=== PATIENT | female | born 1950 | race Caucasian/White ===

== ENCOUNTER 2016-08-24 16:45 | Inpatient (IN) | payer BC, MEDICARE ==
[~2016-08-24] VITALS: Ht 175.3 cm; Wt 78.7 kg
[~2016-08-24 16:45] MED LIST: HYDR1TAB86 PO; LEVO500T69 PO; LISI20TA PO; METR500T PO; OMEP20CA12 PO; OMEP40CA36 PO; acid reflux; htn med
[2016-08-24] MEDS ORDERED: NS IV 1000 ML 1,000 ML IV ONE ×2 (17:06→18:05)
[2016-08-24] MEDS ORDERED: FLUO10CA19 PO (17:31)
--- NOTE | 2016-08-24 17:38 | Diagnostic Imaging Report ---
Indication: Fell, head injury, low blood pressure. Comparison studies: None Findings: Frontal view of the chest demonstrates the lungs to be clear. The heart, mediastinum and pulmonary vascularity are normal. Some degenerative changes are present in the right shoulder. Impression: Negative chest. Dictated by: Dictated on workstation # [id number]
--- NOTE | 2016-08-24 17:41 | Diagnostic Imaging Report ---
PROCEDURE: CT head and CT cervical spine without contrast. TECHNIQUE: Multiple contiguous axial images were obtained through the brain and cervical spine without the use of intravenous contrast. Sagittal and coronal reformations through the cervical spine were then performed. INDICATION: Fell, no loss of consciousness, complaining of headache and neck pain. COMPARISON STUDY: CT scan of the head from 11/11/2015. FINDINGS: There is no mass effect, midline shift, hemorrhage, or extra-axial fluid collections. Rodríguez-white matter differentiation appears normal. Ventricles, cortical sulci, and basilar cisterns are normal. Postoperative changes are again seen to the frontal bone with opacification of the frontal sinuses. Mastoid air cells are clear. IMPRESSION: There are no acute findings. Cervical spine: Noncontrast CT scan of the cervical spine with sagittal and coronal reformats demonstrates no fracture or subluxation. There is loss of the normal lordotic curvature. The craniocervical junction appears normal. Diffuse spondylosis is present with central and bilateral foraminal stenosis at C4-C5, C5-C6, and C6-C7. Small cervical lymph nodes are within normal limits of size. IMPRESSION: Spondylosis is present with no acute findings in the cervical spine. Dictated by: Dictated on workstation # [id number]
[2016-08-24 17:48] LABS: ALANINE AMINOTRANSFERASE 19 U/L (0-55); ALBUMIN 3.8 G/DL (3.2-4.5); ANION GAP 13 MMOL/L (5-14); ASPARTATE AMINO TRANSFERASE 22 U/L (5-34); BILIRUBIN,TOTAL 1.6 MG/DL (0.1-1.0); BLOOD UREA NITROGEN 24 MG/DL (7-18); BUN/CREATININE RATIO 9; CALCIUM 9.3 MG/DL (8.5-10.1); CARBON DIOXIDE 20 MMOL/L (21-32); CHLORIDE 107 MMOL/L (98-107); CREATININE SERUM 2.66 MG/DL (0.60-1.30); GFR ESTIMATED 18; GLUCOSE 118 MG/DL (70-105); SODIUM 140 MMOL/L (135-145); TOTAL PROTEIN 7.3 G/DL (6.4-8.2)
[2016-08-24 17:53] LABS: BASOPHILS % (AUTO) 0 % (0-10); EOSINOPHILS % (AUTO) 0 % (0-10); LYMPHOCYTES # (AUTO) 1.6 X 10^3 (1.0-4.0); LYMPHOCYTES % (AUTO) 13 % (12-44); MEAN CORPUSCULAR HEMOGLOBIN 30 PG (25-34); MEAN CORPUSCULAR HGB CONC 33 G/DL (32-36); MEAN CORPUSCULAR VOLUME 92 FL (80-99); MEAN PLATELET VOLUME 9.5 FL (7.4-10.4); MONOCYTES # (AUTO) 1.2 X 10^3 (0.0-1.0); MONOCYTES % (AUTO) 9 % (0-12); NEUTROPHILS # (AUTO) 9.4 X 10^3 (1.8-7.8); NEUTROPHILS % (AUTO) 77 % (42-75); PLATELET COUNT 279 10^3/uL (130-400); RED BLOOD COUNT 4.26 10^6/uL (4.35-5.85); RED CELL DISTRIBUTION WIDTH 12.2 % (10.0-14.5); WHITE BLOOD COUNT 12.2 10^3/uL (4.3-11.0)
[2016-08-24 17:55] LABS: TROPONIN I < 0.30 NG/ML (<0.30)
--- NOTE | 2016-08-24 18:00 | Diagnostic Imaging Report ---
PROCEDURE: CT pelvis without contrast. TECHNIQUE: Multiple contiguous axial images were obtained through the pelvis without the use of intravenous contrast. Sagittal and coronal reformations were performed. INDICATION: Fall. Lower pelvic pain. COMPARISON: 07/16/2012. FINDINGS: Evaluation of the bony pelvis demonstrates focal cortical disruption involving the anterior margins at the junction of S2 and S3 (image 91, series 5). Corresponding fracture is also identified posteriorly, also on the sagittal sequence (images 84 and 94, series 5). The remainder of the bony pelvis is intact. SI joints are symmetric. Pubic symphysis is intact. Included portions of the proximal femurs are intact. There is no evidence of hip fracture or dislocation on either side. 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 There is also moderate amount of air within the lumen of the urinary bladder. No free fluid is seen within the pelvis. IMPRESSION: 1. Nondisplaced sacral fracture as described above. 2. Air within the urinary bladder. Correlation with history of recent instrumentation is recommended. Alternatively, findings can be seen with gas forming cystitis. Dictated by: Dictated on workstation # [id number]
--- NOTE | 2016-08-24 18:12 | ED General ---
General Chief Complaint: Trauma-Non Activation Stated Complaint: FALL/HEAD INJ/LOW BP/DIZZINESS Nursing Triage Note: AMB TO ROOM REPORTS HAD FALL LAST NIGHT HITTING HEAD NO LOC C COLLAR PLACED ON ADMIT TO ROOM. PATIENT REPORT THAT WAS SEEN AT [facility] [address] B/P WAS IN 70/ WAS TOLD TO JUST WATCH IT. CON'T NOT FEEL WELL. Nursing Sepsis Screen: No Definite Risk Source of Information: Patient Exam Limitations: No Limitations (FREDY SALAS MD) History of Present Illness Time Seen by Provider: 16:48 Initial Comments This 65-year-old woman presents to the emergency room with complaints of feeling lightheaded and ill with symptoms starting as long as 2 weeks ago. She has had cough with URI symptoms. She presented to the [facility] clinic earlier today and was diagnosed with sinus infection. Her blood pressure was noted to be 72/52 at that time. Symptoms progressed today and she decided to present to the emergency room. She also reports slipping and falling in the bathtub last night. She had the back of her head and complains of head pain, neck pain, and tailbone pain. C-collar was placed during assessment. (FREDY SALAS MD) Allergies and Home Medications Allergies Coded Allergies: No Known Drug Allergies (Unverified , 04/20/10) Home Medications Cefaclor 500 Mg Capsule, 500 MG PO BID, #14 Prescribed by: RUT ALONSO on 08/26/16 0858 Fluoxetine HCl 10 Mg Capsule, 10 MG PO DAILY, (Reported) Lisinopril 20 Mg Tablet, 20 MG PO DAILY, (Reported) Pantoprazole Sodium 40 Mg Tablet.dr, 40 MG PO DAILY, (Reported) Constitutional: see HPI EENTM: see HPI Respiratory: see HPI Cardiovascular: see HPI Gastrointestinal: see HPI Genitourinary: no symptoms reported : No Musculoskeletal: see HPI Skin: no symptoms reported Psychiatric/Neurological: See HPI Hematologic/Lymphatic: No Symptoms Reported (FREDY SALAS MD) Past Amaxdup-Xuyrdt-Wlfbvc Hx Patient Social History Recent Foreign Travel: No Contact w/Someone Who Travel: No Recent Infectious Disease Expo: No Recent Hopitalizations: No (FREDY SALAS MD) Immunizations Up To Date Tetanus Booster (TDap): Less than 5yrs PED Vaccines UTD: No Date of Influenza Vaccine: Nov 27, 2011 (FREDY SALAS MD) Surgeries HX Surgeries: Yes (BRAIN TUMOR REMOVED-1999, FACIAL LACERATION 1968, melanoma excision from neck) (FREDY SALAS MD) Respiratory Hx Respiratory Disorders: No (FREDY SALAS MD) Cardiovascular Hx Cardiac Disorders: Yes Cardiac Disorders: Hypertension (FREDY SALAS MD) Neurological Hx Neurological Disorders: No (FREDY SALAS MD) Reproductive System : No Hx Reproductive Disorders: No (FREDY SALAS MD) Genitourinary Hx Genitourinary Disorders: Yes Genitourinary Disorders: UTI-Chronic (recurrent UTI) (FREDY SALAS MD) Gastrointestinal Hx Gastrointestinal Disorders: Yes (07/17/12) Gastrointestinal Disorders: Colitis, Gastrointestinal Bleed (FREDY SALAS MD) Musculoskeletal Hx Musculoskeletal Disorders: Yes (2008) Musculoskeletal Disorders: Fractures (FREDY SALAS MD) Endocrine Hx Endocrine Disorders: No (FREDY SALAS MD) HEENT HX ENT Disorders: Yes HEENT Disorders: Cataract (FREDY SALAS MD) Cancer Hx Cancer: Yes Cancer: Brain, Skin, Melanoma (FREDY SALAS MD) Psychosocial Hx Psychiatric Problems: No (FREDY SALAS MD) Integumentary HX Skin/Integumentary Disorder: No (FREDY SALAS MD) Blood Transfusions Hx Blood Disorders: No Adverse Reaction to a Blood Tr: No (FREDY SALAS MD) Family Medical History Significant Family History: Cancer, Hypertension (FREDY SALAS MD) Physical Exam Vital Signs Vital Sign - Last 12Hours 08/24/16 16:52 Temp 98.8 Pulse 82 Resp 18 B/P (MAP) 100/65 Pulse Ox 98 O2 Delivery Room Air (DO DEWITT APRN) Vital Signs Capillary Refill : Less Than 3 Seconds (FREDY SALAS MD) General Appearance: No Apparent Distress, WD/WN HEENT: PERRL/EOMI, Normal ENT Inspection, Other (oropharynx for a dry) Neck: Normal Inspection, Other (in c-collar) Respiratory: Lungs Clear, Normal Breath Sounds, No Accessory Muscle Use, No Respiratory Distress Cardiovascular: Regular Rate, Rhythm, No Edema, No Murmur Gastrointestinal: Non Tender, Soft Extremity: Normal Inspection Neurologic/Psychiatric: Alert, Oriented x3, No Motor/Sensory Deficits, Normal 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, 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 Skin: Normal Color, Warm/Dry (FREDY SALAS MD) Progress/Results/Core Measures Results/Orders Lab Results Laboratory Tests Test 08/24/16 17:18 08/24/16 18:25 Range/Units White Blood Count 12.2 H 4.3-11.0 10^3/uL Red Blood Count 4.26 L 4.35-5.85 10^6/uL Hemoglobin 12.9 11.5-16.0 G/DL Hematocrit 39 35-52 % Mean Corpuscular Volume 92 80-99 FL Mean Corpuscular Hemoglobin 30 25-34 PG Mean Corpuscular Hemoglobin Concent 33 32-36 G/DL Red Cell Distribution Width 12.2 10.0-14.5 % Platelet Count 279 130-400 10^3/uL Mean Platelet Volume 9.5 7.4-10.4 FL Neutrophils (%) (Auto) 77 H 42-75 % Lymphocytes (%) (Auto) 13 12-44 % Monocytes (%) (Auto) 9 0-12 % Eosinophils (%) (Auto) 0 0-10 % Basophils (%) (Auto) 0 0-10 % Neutrophils # (Auto) 9.4 H 1.8-7.8 X 10^3 Lymphocytes # (Auto) 1.6 1.0-4.0 X 10^3 Monocytes # (Auto) 1.2 H 0.0-1.0 X 10^3 Eosinophils # (Auto) 0.0 0.0-0.3 10^3/uL Basophils # (Auto) 0.0 0.0-0.1 10^3/uL Sodium Level 140 135-145 MMOL/L Potassium Level 4.0 3.6-5.0 MMOL/L Chloride Level 107 98-107 MMOL/L Carbon Dioxide Level 20 L 21-32 MMOL/L Anion Gap 13 5-14 MMOL/L Blood Urea Nitrogen 24 H 7-18 MG/DL Creatinine 2.66 H 0.60-1.30 MG/DL Estimat Glomerular Filtration Rate 18 BUN/Creatinine Ratio 9 Glucose Level 118 H 70-105 MG/DL Calcium Level 9.3 8.5-10.1 MG/DL Magnesium Level 2.0 1.8-2.4 MG/DL Total Bilirubin 1.6 H 0.1-1.0 MG/DL Aspartate Amino Transf (AST/SGOT) 22 5-34 U/L Alanine Aminotransferase (ALT/SGPT) 19 0-55 U/L Alkaline Phosphatase 68 40-136 U/L Troponin I < 0.30 <0.30 NG/ML Total Protein 7.3 6.4-8.2 G/DL Albumin 3.8 3.2-4.5 G/DL Urine Color YELLOW Urine Clarity SLIGHTLY CLOUDY Urine pH 5 5-9 Urine Specific [place] 1.020 1.016-1.022 Urine Protein 2+ H NEGATIVE Urine Glucose (UA) NEGATIVE NEGATIVE Urine Ketones NEGATIVE NEGATIVE Urine Nitrite NEGATIVE NEGATIVE Urine Bilirubin NEGATIVE NEGATIVE Urine Urobilinogen 8 H NORMAL MG/DL Urine Leukocyte Esterase 3+ H NEGATIVE Urine RBC (Auto) 2+ H NEGATIVE Urine RBC 5-10 H /HPF Urine WBC >100 H /HPF Urine Squamous Epithelial Cells 5-10 /HPF Urine Crystals NONE /LPF Urine Bacteria LARGE H /HPF Urine Casts NONE /LPF Urine Mucus NEGATIVE /LPF Urine Culture Indicated YES (DO DEWITT APRN) My Orders Orders - DO DEWITT APRN Ceftriaxone Injection (Rocephin Injectio (08/24/16 19:00) (DO DEWITT APRN) Medications Given in ED Current Medications Medications Dose Ordered Sig/Branden Route Start Time Stop Time Status Last Admin Dose Admin Sodium Chloride 1,000 ml @ 0 mls/hr Q0M ONCE IV 08/24/16 17:06 08/24/16 17:08 DC 08/24/16 18:00 1,000 MLS/HR (DO DEWITT APRN) Vital Signs/I&O Vital Sign - Last 12Hours 08/24/16 16:52 Temp 98.8 Pulse 82 Resp 18 B/P (MAP) 100/65 Pulse Ox 98 O2 Delivery Room Air (DO DEWITT APRN) Blood Pressure Mean: 77 Progress Note : Progress Note She was placed in c-collar during assessment. IV fluids were initiated. Imaging revealed a sacral fracture, nondisplaced. CT of head and cervical spine were normal. C-collar was cleared at 18:15. Chest x-ray was normal. Once renal failure was identified in labs, a second liter of IV fluids was ordered. Air was seen in the bladder on CT of the pelvis without explanation. UA was ordered. Case was reviewed with Dr. Schmidt who will be consulted for trauma. Case was reviewed with Dr. Alonso who agrees with admission for hydration overnight and repeat labs in the morning. In addition to the 2 L of fluids ordered in the emergency room, normal saline will be run at 100 mL per hour through the night. (FREDY SALAS MD) ECG Initial ECG Impression Date: August 24, 2016 Initial ECG Impression Time: 17:07 Initial ECG Rate: 68 Initial ECG Rhythm: Normal Sinus Initial ECG Intervals: Normal Initial ECG Impression: Normal Comment Normal sinus rhythm with no ST elevation or depression. No abnormal intervals. LVH with secondary repolarization. (FREDY SALAS MD) Diagnostic Imaging Diagonstic Imaging: CT Plain Films/CT/US/NM/MRI: c-spine, head Comments CT head and cervical spine viewed by me. Report reviewed. See report below: NAME: ANNABELLA TRONCOSO [facility] REC#: [id number] PT STATUS: REG ER : 1950 PHYSICIAN: FREDY SALAS MD ADMIT DATE: 08/24/16/ER Draft Date of Exam:08/24/16 CT HEAD/CERVICAL SPINE WO PROCEDURE: CT head and CT cervical spine without contrast. TECHNIQUE: Multiple contiguous axial images were obtained through the brain and cervical spine without the use of intravenous contrast. Sagittal and coronal reformations through the cervical spine were then performed. INDICATION: Fell, no loss of consciousness, complaining of headache and neck pain. COMPARISON STUDY: CT scan of the head from 11/11/2015. FINDINGS: There is no mass effect, midline shift, hemorrhage, or extra-axial fluid collections. Rodríguez-white matter differentiation appears normal. Ventricles, cortical sulci, and basilar cisterns are normal. Postoperative changes are again seen to the frontal bone with opacification of the frontal sinuses. Mastoid air cells are clear. IMPRESSION: There are no acute findings. Cervical spine: Noncontrast CT scan of the cervical spine with sagittal and coronal reformats demonstrates no fracture or subluxation. There is loss of the normal lordotic curvature. The craniocervical junction appears normal. Diffuse spondylosis is present with central and bilateral foraminal stenosis at C4-C5, C5-C6, and C6-C7. Small cervical lymph nodes are within normal limits of size. IMPRESSION: Spondylosis is present with no acute findings in the cervical spine. Dictated on workstation # [id number] Dict: 08/24/16 1734 Trans: 08/24/16 1740 [id number] Interpreted by: EDUARDO COHEN MD Diagonstic Imaging: CT Plain Films/CT/US/NM/MRI: pelvis Comments CT pelvis viewed by me and report reviewed. See report below: NAME: ANNABELLA TRONCOSO [facility] REC#: [id number] PT STATUS: REG ER : 1950 PHYSICIAN: FREDY SALAS MD ADMIT DATE: 08/24/16/ER Draft Date of Exam:08/24/16 CT PELVIS WO PROCEDURE: CT pelvis without contrast. TECHNIQUE: Multiple contiguous axial images were obtained through the pelvis without the use of intravenous contrast. Sagittal and coronal reformations were performed. INDICATION: Fall. Lower pelvic pain. COMPARISON: 07/16/2012. FINDINGS: Evaluation of the bony pelvis demonstrates focal cortical disruption involving the anterior margins at the junction of S2 and S3 (image 91, series 5). Corresponding fracture is also identified posteriorly, also on the sagittal sequence (images 84 and 94, series 5). The remainder of the bony pelvis is intact. SI joints are symmetric. Pubic symphysis is intact. Included portions of the proximal femurs are intact. There is no evidence of hip fracture or dislocation on either side. 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 There is also moderate amount of air within the lumen of the urinary bladder. No free fluid is seen within the pelvis. IMPRESSION: 1. Nondisplaced sacral fracture as described above. 2. Air within the urinary bladder. Correlation with history of recent instrumentation is recommended. Alternatively, findings can be seen with gas forming cystitis. Dictated on workstation # [id number] Dict: 08/24/16 175 Trans: 08/24/16 175 IMS [id number] Interpreted by: LEXX WALKER Imaging: Xray Plain Films/CT/US/NM/MRI: chest Comments NAME: ANNABELLA TRONCOSO [facility] REC#: [id number] PT STATUS: REG ER : 1950 PHYSICIAN: FREDY SALAS MD ADMIT DATE: 08/24/16/ER Signed Date of Exam:08/24/16 CHEST 1 VIEW, AP/PA ONLY Indication: Fell, head injury, low blood pressure. Comparison studies: None Findings: Frontal view of the chest demonstrates the lungs to be clear. The heart, mediastinum and pulmonary vascularity are normal. Some degenerative changes are present in the right shoulder. Impression: Negative chest. Dictated by: Dictated on workstation # [id number] Dict: 08/24/161732 Trans: 08/24/16 180 B [id number] Interpreted by: EDUARDO COHEN MD Electronically signed by: EDUARDO COHEN MD 08/24/161805 (FREDY SALAS MD) Departure Communication Progress Notes 1858-Urinalysis does show urinary tract infection. Rocephin 1 g IV ordered here. Patient also has bilateral conjunctival erythema/injection. She states that her grandson had pinkeye recently. I will also add gentamicin ophthalmic drops. (DO DEWITT APRN) Impression Impression: Primary Impression: Acute renal failure Qualified Codes: N17.9 - Acute kidney failure, unspecified Additional Impressions: Sacral fracture Qualified Codes: S32.10XA - Unspecified fracture of sacrum, initial encounter for closed fracture Fall in bathtub Qualified Codes: W18.2XXA - Fall in (into) shower or empty bathtub, initial encounter Conjunctivitis Qualified Codes: H10.33 - Unspecified acute conjunctivitis, bilateral Urinary tract infection Qualified Codes: N39.0 - Urinary tract infection, site not specified Disposition: ADMITTED INPATIENT Condition: Stable Decision to Admit Reason: Admit from ER (General) Decision to Admit/Date: August 24, 2016 Time/Decision to Admit Time: 18:58 (DO DEWITT APRN) Departure-Patient Inst. Referrals: RUT ALONSO DO (PCP/Family) Primary Care Physician Scripts Cefaclor (Cefaclor) 500 Mg Capsule 500 MG PO BID, #14 CAP Prov: RUT ALONSO DO 08/26/16 FREDY SALAS MD August 24, 2016 18:12 DO DEWITT APRN August 24, 2016 18:59
[2016-08-24 18:33] LABS: KETONES,URINE NEGATIVE (NEGATIVE); LEUKOCYTE ESTERASE ,URINE 3+ (NEGATIVE); NITRITE,URINE NEGATIVE (NEGATIVE); PH,URINE 5 (5-9); PROTEIN,URINE 2+ (NEGATIVE); UROBILINOGEN,URINE 8 MG/DL (NORMAL)
[2016-08-24 18:46] LABS: BILIRUBIN,URINE NEGATIVE (NEGATIVE); WBC,URINE >100 /HPF
--- NOTE | 2016-08-24 18:49 | Consultation ---
History of Present Illness History of Present Illness Patient Consulted On(wei/time) 08/24/16 18:44 Date of Admission History of Present Illness This is a 65 year old woman who came into the ER due to a fall, last night. She complained of head pain, neck pain, and tailbone pain to ED . She reports that she had just taken a bath and was stepping out. She reports slipping and falling to her bottom and fell backwards hitting her head. Patient denies any LOC. She is alert and oriented x 3. No signs of distress or discomfort noted. Allergies and Home Medications Allergies Coded Allergies: No Known Drug Allergies (Unverified , 04/20/10) Home Medications Fluoxetine HCl 10 Mg Capsule, #90 (Reported) Lisinopril 20 Mg Tablet, 20 MG PO DAILY, (Reported) Omeprazole 40 Mg Capsule.dr, 40 MG PO DAILY, (Reported) Past Imbzzvu-Rurxux-Vqvnsj Hx Patient Social History Recent Foreign Travel: No Contact w/Someone Who Travel: No Recent Infectious Disease Expo: No Recent Hopitalizations: No Immunizations Up To Date Tetanus Booster (TDap): Less than 5yrs PED Vaccines UTD: No Date of Influenza Vaccine: Nov 27, 2011 Surgeries HX Surgeries: Yes (BRAIN TUMOR REMOVED-1999, FACIAL LACERATION 1968, melanoma excision from neck) Respiratory Hx Respiratory Disorders: No Cardiovascular Hx Cardiac Disorders: Yes Cardiac Disorders: Hypertension Neurological Hx Neurological Disorders: No Reproductive System : No Hx Reproductive Disorders: No Genitourinary Hx Genitourinary Disorders: Yes Genitourinary Disorders: UTI-Chronic (recurrent UTI) Gastrointestinal Hx Gastrointestinal Disorders: Yes (07/17/12) Gastrointestinal Disorders: Colitis, Gastrointestinal Bleed Musculoskeletal Hx Musculoskeletal Disorders: Yes (WRIST 2008) Musculoskeletal Disorders: Fractures Endocrine Hx Endocrine Disorders: No HEENT HX ENT Disorders: Yes HEENT Disorders: Cataract Cancer Hx Cancer: Yes Cancer: Brain, Skin, Melanoma Psychosocial Hx Psychiatric Problems: No Integumentary HX Skin/Integumentary Disorder: No Blood Transfusions Hx Blood Disorders: No Adverse Reaction to a Blood Tr: No Family Medical History Significant Family History: Cancer, Hypertension Review of Systems-General Constitutional: see HPI EENTM: see HPI Respiratory: no symptoms reported Cardiovascular: no symptoms reported Gastrointestinal: no symptoms reported Genitourinary: no symptoms reported Musculoskeletal: back pain Skin: no symptoms reported, see HPI Psychiatric/Neurological: No Symptoms Reported Physical Exam-General Problems Physical Exam Vital Signs Vital Sign - Last 12Hours 08/24/16 16:52 Temp 98.8 Pulse 82 Resp 18 B/P (MAP) 100/65 Pulse Ox 98 O2 Delivery Room Air Capillary Refill : Less Than 3 Seconds General Appearance: no apparent distress HEENT: PERRL/EOMI Respiratory: chest non-tender, no respiratory distress, no accessory muscle use Cardiovascular: regular rate, rhythm Gastrointestinal: soft, no organomegaly, no pulsatile mass Extremities: no pedal edema, no calf tenderness Neurologic/Psychiatric: alert, normal mood/affect, oriented x 3 Data Review Labs Laboratory Tests 08/24/16 17:18: White Blood Count 12.2H, Red Blood Count 4.26L, Hemoglobin 12.9, Hematocrit 39, Mean Corpuscular Volume 92, Mean Corpuscular Hemoglobin 30, Mean Corpuscular Hemoglobin Concent 33, Red Cell Distribution Width 12.2, Platelet Count 279, Mean Platelet Volume 9.5, Neutrophils (%) (Auto) 77H, Lymphocytes (%) (Auto) 13 , Monocytes (%) (Auto) 9, Eosinophils (%) (Auto) 0, Basophils (%) (Auto) 0, Neutrophils # (Auto) 9.4H, Lymphocytes # (Auto) 1.6, Monocytes # (Auto) 1.2H, Eosinophils # (Auto) 0.0, Basophils # (Auto) 0.0, Sodium Level 140, Potassium Level 4.0, Chloride Level 107, Carbon Dioxide Level 20L, Anion Gap 13, Blood Urea Nitrogen 24H, Creatinine 2.66H, Estimat Glomerular Filtration Rate 18, BUN/ Creatinine Ratio 9, Glucose Level 118H, Calcium Level 9.3, Magnesium Level 2.0, Total Bilirubin 1.6H, Aspartate Amino Transf (AST/SGOT) 22, Alanine Aminotransferase (ALT/SGPT) 19, Alkaline Phosphatase 68, Troponin I < 0.30, Total Protein 7.3, Albumin 3.8 08/24/16 18:25: Radiology NAME: ANNABELLA TRONCOSO [facility] REC#: [id number] PT STATUS: REG ER : 1950 PHYSICIAN: FREDY SALAS MD ADMIT DATE: 08/24/16/ER Signed Date of Exam: 08/24/16 CT HEAD/CERVICAL SPINE WO PROCEDURE: CT head and CT cervical spine without contrast. TECHNIQUE: Multiple contiguous axial images were obtained through the brain and cervical spine without the use of intravenous contrast. Sagittal and coronal reformations through the cervical spine were then performed. INDICATION: Fell, no loss of consciousness, complaining of headache and neck pain. COMPARISON STUDY: CT scan of the head from 11/11/2015. FINDINGS: There is no mass effect, midline shift, hemorrhage, or extra-axial fluid collections. Rodríguez-white matter differentiation appears normal. Ventricles, cortical sulci, and basilar cisterns are normal. Postoperative changes are again seen to the frontal bone with opacification of the frontal sinuses. Mastoid air cells are clear. IMPRESSION: There are no acute findings. Cervical spine: Noncontrast CT scan of the cervical spine with sagittal and coronal reformats demonstrates no fracture or subluxation. There is loss of the normal lordotic curvature. The craniocervical junction appears normal. Diffuse spondylosis is present with central and bilateral foraminal stenosis at C4-C5, C5-C6, and C6-C7. Small cervical lymph nodes are within normal limits of size. IMPRESSION: Spondylosis is present with no acute findings in the cervical spine. BONI: ANNBAELLA TRONCOSO [facility] REC#: [id number] PT STATUS: REG ER : 1950 PHYSICIAN: FREDY SALAS MD ADMIT DATE: 08/24/16/ER Draft Date of Exam:08/24/16 CT PELVIS WO PROCEDURE: CT pelvis without contrast. TECHNIQUE: Multiple contiguous axial images were obtained through the pelvis without the use of intravenous contrast. Sagittal and coronal reformations were performed. INDICATION: Fall. Lower pelvic pain. COMPARISON: 07/16/2012. FINDINGS: Evaluation of the bony pelvis demonstrates focal cortical disruption involving the anterior margins at the junction of S2 and S3 (image 91, series 5). Corresponding fracture is also identified posteriorly, also on the sagittal sequence (images 84 and 94, series 5). The remainder of the bony pelvis is intact. SI joints are symmetric. Pubic symphysis is intact. Included portions of the proximal femurs are intact. There is no evidence of hip fracture or dislocation on either side. 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 There is also moderate amount of air within the lumen of the urinary bladder. No free fluid is seen within the pelvis. IMPRESSION: 1. Nondisplaced sacral fracture as described above. 2. Air within the urinary bladder. Correlation with history of recent instrumentation is recommended. Alternatively, findings can be seen with gas forming cystitis. Assessment/Plan Assessment/Plan Assessment/Plan Nondisplaced sacral fracture Acute kidney failure Fall We will continue to monitor patient including her labs and vital signs. Roxana- consulted for trauma fall. 65 year old female who had fall last night landing on bottom. No loss of consciousness. Has some pain in the sacral area and neck and lower back. Patient been ill about 2 weeks with upper respiratory infection she states. Has drainage from eyes and recently around grandson with pinkeye. Eyes are matted and red. Patient had no abdominal pain. She was diagnoses with sinus infection at outpatient clinic today. She had ct head and c spine that had no acute findings. Pelvis x ray demonstrating sacral nondisplaced fracture and some air in the bladder. Chest x ray no acute finding. general no acute distress laying down head ncat eyes b/l erythematous and some matting of eyelids nares patent mouth moist GCS 15 neck no tender collar removed previous to me seeing patient heart regluar lungs nonlabored abdomen soft back minimal tenderness lower sacral region no neurological deficits ext nontender normal mood affect alert and oriented Fall yesterday, sacral fracture nondisplaced, acute renal failure, UTI B/l pink eye patient being admitted to medicine for medical management. no surgical intervention DALLAS NIELSON APRN August 24, 2016 18:49 PARI WEINER DO August 24, 2016 19:27
[2016-08-24] MEDS ORDERED: cefTRIAXone INJECTION 1,000 MG in NS (IVPB) 50 ML IV ONE (19:00)
[2016-08-24 19:51] VITALS: BP 136/82
[2016-08-24] MEDS: NS IV 1000 ML 1,000 ML IV SCH (20:00)
[2016-08-24] MEDS ORDERED: ONDANSETRON 4 MG/2 ML (SDV) Z0FRAN IV PRN (20:15)
[2016-08-24] MEDS ORDERED: CATHETER FLUSH 10 ML SYR IV PRN (20:15)
[2016-08-24 20:42] VITALS: BP 133/82
[2016-08-24 21:52] VITALS: BP 111/72
[2016-08-24 22:53] VITALS: BP 111/73
[2016-08-24] MEDS ORDERED: GENTAMICIN 0.3% OPHTH SOLN 5 ML ONE (23:08)
[2016-08-25] VITALS (7 sets, daily range): BP systolic 112–157; BP diastolic 57–76
[2016-08-25] MEDS: GENTAMICIN 0.3% OPHTH SOLN 5 ML OU SCH ×6 (00:11→23:36)
[2016-08-25] MEDS: NS IV 1000 ML 1,000 ML IV SCH ×2 (04:14→16:49)
[2016-08-25 06:36] LABS: BASOPHILS % (AUTO) 0 % (0-10); EOSINOPHILS # (AUTO) 0.2 10^3/uL (0.0-0.3); EOSINOPHILS % (AUTO) 2 % (0-10); LYMPHOCYTES # (AUTO) 1.4 X 10^3 (1.0-4.0); LYMPHOCYTES % (AUTO) 17 % (12-44); MEAN CORPUSCULAR HEMOGLOBIN 30 PG (25-34); MEAN CORPUSCULAR HGB CONC 33 G/DL (32-36); MEAN CORPUSCULAR VOLUME 93 FL (80-99); MEAN PLATELET VOLUME 9.6 FL (7.4-10.4); MONOCYTES # (AUTO) 0.7 X 10^3 (0.0-1.0); MONOCYTES % (AUTO) 9 % (0-12); NEUTROPHILS # (AUTO) 5.6 X 10^3 (1.8-7.8); NEUTROPHILS % (AUTO) 71 % (42-75); PLATELET COUNT 219 10^3/uL (130-400); RED BLOOD COUNT 3.85 10^6/uL (4.35-5.85); RED CELL DISTRIBUTION WIDTH 12.2 % (10.0-14.5); WHITE BLOOD COUNT 7.9 10^3/uL (4.3-11.0)
[2016-08-25 06:59] LABS: CALCIUM 8.4 MG/DL (8.5-10.1); CREATININE SERUM 1.64 MG/DL (0.60-1.30); POTASSIUM 3.4 MMOL/L (3.6-5.0)
[2016-08-25] MEDS ORDERED: PANT40TA3 PO (08:11)
[2016-08-25] MEDS ORDERED: IBUP-30 PO (08:11)
--- NOTE | 2016-08-25 08:46 | Progress Note ---
Subjective Subjective/Events-last exam Patient resting in bed. Even respirations. No distress noted. Alert and oriented x 3. Reports she feels fine and ready to go home. Objective Exam Vital Signs Date Time Temp Pulse Resp B/P (MAP) Pulse Ox O2 Delivery O2 Flow Rate FiO2 08/25/16 03:50 98.1 69 20 115/57 97 2.00 08/25/16 00:53 64 08/25/16 00:15 98.2 76 20 112/76 96 2.00 08/24/16 23:25 2.00 08/24/16 22:53 98.0 66 18 111/73 95 2.00 08/24/16 21:52 97.0 75 18 111/72 87 08/24/16 21:13 70 08/24/16 20:42 97.3 70 18 133/82 95 08/24/16 19:51 97.8 77 18 136/82 96 08/24/16 19:34 69 20 98 08/24/16 16:52 98.8 82 18 100/65 98 Room Air I & O 08/25/16 07:00 Intake Total 2700 ml Output Total 0 ml Balance 2700 ml Capillary Refill : Less Than 3 Seconds General Appearance: No Apparent Distress, WD/WN HEENT: PERRL/EOMI, Normal ENT Inspection, Other (oropharynx for a dry) Neck: Normal Inspection, Other (in c-collar) Respiratory: Chest Non Tender, No Accessory Muscle Use, No Respiratory Distress Cardiovascular: Regular Rate, Rhythm Gastrointestinal: soft, no organomegaly, no pulsatile mass Extremity: Normal Inspection, No Calf Tenderness, No Pedal Edema Neurologic/Psychiatric: Alert, Oriented x3, No Motor/Sensory Deficits, Normal Mood/Affect Skin: Normal Color, Warm/Dry Results Lab Laboratory Tests Test 08/24/16 17:18 08/24/16 18:25 08/25/16 05:43 Range/Units White Blood Count 12.2 H 7.9 4.3-11.0 10^3/uL Red Blood Count 4.26 L 3.85 L 4.35-5.85 10^6/uL Hemoglobin 12.9 11.6 11.5-16.0 G/DL Hematocrit 39 36 35-52 % Mean Corpuscular Volume 92 93 80-99 FL Mean Corpuscular Hemoglobin 30 30 25-34 PG Mean Corpuscular Hemoglobin Concent 33 33 32-36 G/DL Red Cell Distribution Width 12.2 12.2 10.0-14.5 % Platelet Count 279 219 130-400 10^3/uL Mean Platelet Volume 9.5 9.6 7.4-10.4 FL Neutrophils (%) (Auto) 77 H 71 42-75 % Lymphocytes (%) (Auto) 13 17 12-44 % Monocytes (%) (Auto) 9 9 0-12 % Eosinophils (%) (Auto) 0 2 0-10 % Basophils (%) (Auto) 0 0 0-10 % Neutrophils # (Auto) 9.4 H 5.6 1.8-7.8 X 10^3 Lymphocytes # (Auto) 1.6 1.4 1.0-4.0 X 10^3 Monocytes # (Auto) 1.2 H 0.7 0.0-1.0 X 10^3 Eosinophils # (Auto) 0.0 0.2 0.0-0.3 10^3/uL Basophils # (Auto) 0.0 0.0 0.0-0.1 10^3/uL Sodium Level 140 142 135-145 MMOL/L Potassium Level 4.0 3.4 L 3.6-5.0 MMOL/L Chloride Level 107 111 H 98-107 MMOL/L Carbon Dioxide Level 20 L 19 L 21-32 MMOL/L Anion Gap 13 12 5-14 MMOL/L Blood Urea Nitrogen 24 H 23 H 7-18 MG/DL Creatinine 2.66 H 1.64 H 0.60-1.30 MG/DL Estimat Glomerular Filtration Rate 18 31 BUN/Creatinine Ratio 9 14 Glucose Level 118 H 90 70-105 MG/DL Calcium Level 9.3 8.4 L 8.5-10.1 MG/DL Magnesium Level 2.0 1.8-2.4 MG/DL Total Bilirubin 1.6 H 0.1-1.0 MG/DL Aspartate Amino Transf (AST/SGOT) 22 5-34 U/L Alanine Aminotransferase (ALT/SGPT) 19 0-55 U/L Alkaline Phosphatase 68 40-136 U/L Troponin I < 0.30 <0.30 NG/ML Total Protein 7.3 6.4-8.2 G/DL Albumin 3.8 3.2-4.5 G/DL Urine Color YELLOW Urine Clarity SLIGHTLY CLOUDY Urine pH 5 5-9 Urine Specific Mentcle 1.020 1.016-1.022 Urine Protein 2+ H NEGATIVE Urine Glucose (UA) NEGATIVE NEGATIVE Urine Ketones NEGATIVE NEGATIVE Urine Nitrite NEGATIVE NEGATIVE Urine Bilirubin NEGATIVE NEGATIVE Urine Urobilinogen 8 H NORMAL MG/DL Urine Leukocyte Esterase 3+ H NEGATIVE Urine RBC (Auto) 2+ H NEGATIVE Urine RBC 5-10 H /HPF Urine WBC >100 H /HPF Urine Squamous Epithelial Cells 5-10 /HPF Urine Crystals NONE /LPF Urine Bacteria LARGE H /HPF Urine Casts NONE /LPF Urine Mucus NEGATIVE /LPF Urine Culture Indicated YES Laboratory Tests 08/24/16 17:18: White Blood Count 12.2H, Red Blood Count 4.26L, Hemoglobin 12.9, Hematocrit 39, Mean Corpuscular Volume 92, Mean Corpuscular Hemoglobin 30, Mean Corpuscular Hemoglobin Concent 33, Red Cell Distribution Width 12.2, Platelet Count 279, Mean Platelet Volume 9.5, Neutrophils (%) (Auto) 77H, Lymphocytes (%) (Auto) 13 , Monocytes (%) (Auto) 9, Eosinophils (%) (Auto) 0, Basophils (%) (Auto) 0, Neutrophils # (Auto) 9.4H, Lymphocytes # (Auto) 1.6, Monocytes # (Auto) 1.2H, Eosinophils # (Auto) 0.0, Basophils # (Auto) 0.0, Sodium Level 140, Potassium Level 4.0, Chloride Level 107, Carbon Dioxide Level 20L, Anion Gap 13, Blood Urea Nitrogen 24H, Creatinine 2.66H, Estimat Glomerular Filtration Rate 18, BUN/ Creatinine Ratio 9, Glucose Level 118H, Calcium Level 9.3, Magnesium Level 2.0, Total Bilirubin 1.6H, Aspartate Amino Transf (AST/SGOT) 22, Alanine Aminotransferase (ALT/SGPT) 19, Alkaline Phosphatase 68, Troponin I < 0.30, Total Protein 7.3, Albumin 3.8 08/24/16 18:25: Urine Color YELLOW, Urine Clarity SLIGHTLY CLOUDY, Urine pH 5, Urine Specific Mentcle 1.020, Urine Protein 2+H, Urine Glucose (UA) NEGATIVE, Urine Ketones NEGATIVE, Urine Nitrite NEGATIVE, Urine Bilirubin NEGATIVE, Urine Urobilinogen 8H, Urine Leukocyte Esterase 3+H, Urine RBC (Auto) 2+H, Urine RBC 5-10H, Urine WBC >100H, Urine Squamous Epithelial Cells 5-10, Urine Crystals NONE, Urine Bacteria LARGEH, Urine Casts NONE, Urine Mucus NEGATIVE, Urine Culture Indicated YES 08/25/16 05:43: White Blood Count 7.9, Red Blood Count 3.85L, Hemoglobin 11.6, Hematocrit 36, Mean Corpuscular Volume 93, Mean Corpuscular Hemoglobin 30, Mean Corpuscular Hemoglobin Concent 33, Red Cell Distribution Width 12.2, Platelet Count 219, Mean Platelet Volume 9.6, Neutrophils (%) (Auto) 71, Lymphocytes (%) (Auto) 17, Monocytes (%) (Auto) 9, Eosinophils (%) (Auto) 2, Basophils (%) (Auto) 0, Neutrophils # (Auto) 5.6, Lymphocytes # (Auto) 1.4, Monocytes # (Auto) 0.7, Eosinophils # (Auto) 0.2, Basophils # (Auto) 0.0, Sodium Level 142, Potassium Level 3.4L, Chloride Level 111H, Carbon Dioxide Level 19L, Anion Gap 12, Blood Urea Nitrogen 23H, Creatinine 1.64H, Estimat Glomerular Filtration Rate 31, BUN/ Creatinine Ratio 14, Glucose Level 90, Calcium Level 8.4L Microbiology 08/24/16 Urine Culture - Preliminary, Resulted Gram Negative Gurjit Strep, Beta Hemolytic Group B Assessment/Plan Assessment/Plan Assessment/Plan Nondisplaced sacral fracture UTI Acute kidney failure Fall We will continue to monitor patient including her labs and vital signs. no surgical intervention at this time. Roxana- Patient feeling better today. Having some pain but improving overall. Patient with no new complaints. Less drainage from eyes. Denies n/v fever sweats chills shortness of breath or chest pain. general no acute distress heart reg eyes less erythematous lungs nonlabored abdomen soft nontender ext nontender fall, UTI, sacral fx b/l pink eye acute kidney failure patient with no surgical issues. medical management. will sign off call if needed. Clinical Quality Measures DVT/VTE Risk/Contraindication: Risk Factor Score Per Nursin RFS Level Per Nursing on Admit: 3=High DALLAS NIELSON APRN August 25, 2016 08:46 PARI WEINER DO August 25, 2016 17:24
[2016-08-25] MEDS: cefTRIAXone INJECTION 1,000 MG in NS (IVPB) 50 ML IV SCH (09:20)
--- NOTE | 2016-08-25 18:26 | History & Physicial ---
History of Present Illness History of Present Illness Reason for visit/HPI This is a 65 year old female who presented to the emergency room with a 2 week history of not feeling well. She reported cough and congestion as well as dizziness and weakness. She had been seen earlier in the day at the [facility] and diagnosed with a sinus infection and was also found to be hypotensive. However, she was feeling worse so she presented to the emergency room. She also reported a fall in the bathtub the night before during which she struck her head, neck and tailbone. She was found to be in acute renal failure with a creatinine of 2.66. She was also hypotensive with a blood pressure of 100/65, found to have a UTI, and a nondisplaced sacral fracture at the S2/S3 level. It was decided to admit her for further evaluation and treatment. Date of Admission August 24, 2016 at 6:26 pm I consulted on this patient on 08/25/16 18:20 Attending Physician Claudia Alonso DO Admitting Physician Claudia Alonso DO Consult Allergies and Home Medications Allergies Coded Allergies: No Known Drug Allergies (Unverified , 04/20/10) Home Medications Fluoxetine HCl 10 Mg Capsule, 10 MG PO DAILY, (Reported) Ibuprofen 200 Mg Tablet, 200 MG PO DAILY PRN for PAIN-MILD, (Reported) Lisinopril 20 Mg Tablet, 20 MG PO DAILY, (Reported) Pantoprazole Sodium 40 Mg Tablet.dr, 40 MG PO DAILY, (Reported) Past Oklwrsz-Qbvkiy-Cdfupd Hx Patient Social History Alcohol Use: Occasionally Uses Recreational Drug Use: No Smoking Status: Never a Smoker Physical Abuse Screen: No Sexual Abuse: No Recent Foreign Travel: No Contact w/other who traveled: No Recent Hopitalizations: No Recent Infectious Disease Expo: No Immunizations Up To Date Tetanus Booster (TDap): Less than 5yrs Date of Pneumonia Vaccine: Dec 26, 2014 Date of Influenza Vaccine: Nov 27, 2011 Seasonal Allergies Seasonal Allergies: No Surgeries HX Surgeries: Yes (BRAIN TUMOR REMOVED-1999, FACIAL LACERATION 1968, melanoma excision from neck) Respiratory Hx Respiratory Disorders: No Cardiovascular Hx Cardiovascular Disorders: Yes Cardiac Disorders: Hypertension Neurological Hx Neurological Disorders: No Reproductive System : No Hx Reproductive Disorders: No Genitourinary Hx Genitourinary Disorders: Yes Genitourinary Disorders: UTI-Chronic Gastrointestinal Hx Gastrointestinal Disorders: Yes (4/22/13) Gastrointestinal Disorders: Colitis, Gastrointestinal Bleed Musculoskeletal Hx Musculoskeletal Disorders: Yes (2008) Musculoskeletal Disorders: Fractures Endocrine Hx Endocrine Disorders: No HEENT HX ENT Disorders: Yes HEENT Disorders: Cataract Cancer Hx Cancer: Yes Cancer: Brain, Skin, Melanoma Psychosocial Hx Psychiatric Problems: No Integumentary HX Skin/Integumentary Disorder: No Blood Transfusions Hx Blood Disorders: No Adverse Reaction to a Blood Tr: No Family Medical History Significant Family History: Cancer, Hypertension Constitutional: weakness EENTM: No blurred vision, No dental problems, No double vision, No ear discharge, No ear pain, No epistaxis, No eye pain, No hearing loss, No hoarseness, No mouth pain, No mouth swelling, No no symptoms reported, No nose congestion, No nose pain, No other, No see HPI, No tearing, No throat pain, No throat swelling, No vision loss Respiratory: cough Cardiovascular: No no symptoms reported, No see HPI, No chest pain, No edema, No Hx of Intervention, No palpitations, No syncope, No vascular heart diseas, No other Gastrointestinal: No RUQ, No LUQ, No RLQ, No LLQ, No no symptoms reported, No see HPI, No abdominal pain, No constipation, No diarrhea, No dysphagia, No hematemesis, No heartburn, No jaundice, No loss of appetite, No melena, No nausea, No vomiting, No other Genitourinary: No no symptoms reported, No see HPI, No decreased output, No discharge, No dysuria, No frequency, No hematuria, No hesitancy, No incontinence , No nocturia, No pain, No other Musculoskeletal: back pain, neck pain Skin: No no symptoms reported, No see HPI, No change in color, No change in hair/nails, No dryness, No hx of skin cancer, No lesions, No lumps, No pruritus , No rash, No other Psychiatric/Neurological: Weakness, Other Physical Exam Vital Signs Vital Sign - Last 12Hours 08/24/16 08/24/16 16:52 22:53 Temp 98.8 Pulse 82 Resp 18 B/P (MAP) 100/65 Pulse Ox 98 O2 Delivery Room Air O2 Flow Rate 2.00 Capillary Refill : Less Than 3 SecondsLess Than 3 Seconds General Appearance: No Apparent Distress HEENT: Normal ENT Inspection Neck: Supple Respiratory: Lungs Clear Cardiovascular: Regular Rate, Rhythm, Systolic Murmur Gastrointestinal: Normal Bowel Sounds, Non Tender, Soft Rectal: Deferred Back: No CVA Tenderness Extremity: Non Tender, No Calf Tenderness, No Pedal Edema Neurologic/Psychiatric: Alert, Oriented x3 Skin: Normal Color, Warm/Dry Comments Laboratory Tests 08/25/16 05:43: White Blood Count 7.9, Red Blood Count 3.85L, Hemoglobin 11.6, Hematocrit 36, Mean Corpuscular Volume 93, Mean Corpuscular Hemoglobin 30, Mean Corpuscular Hemoglobin Concent 33, Red Cell Distribution Width 12.2, Platelet Count 219, Mean Platelet Volume 9.6, Neutrophils (%) (Auto) 71, Lymphocytes (%) (Auto) 17, Monocytes (%) (Auto) 9, Eosinophils (%) (Auto) 2, Basophils (%) (Auto) 0, Neutrophils # (Auto) 5.6, Lymphocytes # (Auto) 1.4, Monocytes # (Auto) 0.7, Eosinophils # (Auto) 0.2, Basophils # (Auto) 0.0, Sodium Level 142, Potassium Level 3.4L, Chloride Level 111H, Carbon Dioxide Level 19L, Anion Gap 12, Blood Urea Nitrogen 23H, Creatinine 1.64H, Estimat Glomerular Filtration Rate 31, BUN/ Creatinine Ratio 14, Glucose Level 90, Calcium Level 8.4L Microbiology 08/24/16 Urine Culture - Preliminary, Resulted Escherichia Coli Strep, Beta Hemolytic Group B Assessment/Plan Assessment and Plan 1. Acute Renal Failure--admit and hydrate and monitor Cr 2. Acute UTI--rocephin and culture urine 3. Fall with Head Trauma and Sacral Fracture--trauma surgeon consulted 4. URI--supportive care Problems: Clinical Quality Measures DVT/VTE Risk/Contraindication: Risk Factor Score Per Nursin RFS Level Per Nursing on Admit: 3=High CLAUDIA ALONSO DO August 25, 2016 6:26 pm
[2016-08-25] MEDS ORDERED: ACETAMINOPHEN 325 MG TABLET/CAPLET (TYLENOL) PO PRN (18:45)
[2016-08-26] MEDS: NS IV 1000 ML 1,000 ML IV SCH ×2 (02:20→02:54)
[2016-08-26 03:20] VITALS: BP 132/67
[2016-08-26] MEDS: GENTAMICIN 0.3% OPHTH SOLN 5 ML OU SCH ×3 (04:12→12:09)
[2016-08-26 06:10] LABS: BASOPHILS % (AUTO) 0 % (0-10); EOSINOPHILS # (AUTO) 0.2 10^3/uL (0.0-0.3); EOSINOPHILS % (AUTO) 3 % (0-10); LYMPHOCYTES # (AUTO) 1.4 X 10^3 (1.0-4.0); LYMPHOCYTES % (AUTO) 23 % (12-44); MEAN CORPUSCULAR HEMOGLOBIN 30 PG (25-34); MEAN CORPUSCULAR HGB CONC 33 G/DL (32-36); MEAN CORPUSCULAR VOLUME 92 FL (80-99); MEAN PLATELET VOLUME 9.5 FL (7.4-10.4); MONOCYTES # (AUTO) 0.7 X 10^3 (0.0-1.0); MONOCYTES % (AUTO) 12 % (0-12); NEUTROPHILS # (AUTO) 3.8 X 10^3 (1.8-7.8); NEUTROPHILS % (AUTO) 62 % (42-75); PLATELET COUNT 236 10^3/uL (130-400); RED BLOOD COUNT 3.63 10^6/uL (4.35-5.85); RED CELL DISTRIBUTION WIDTH 12.2 % (10.0-14.5); WHITE BLOOD COUNT 6.2 10^3/uL (4.3-11.0)
[2016-08-26 06:22] LABS: ALANINE AMINOTRANSFERASE 16 U/L (0-55); ANION GAP 8 MMOL/L (5-14); ASPARTATE AMINO TRANSFERASE 21 U/L (5-34); BILIRUBIN,TOTAL 0.6 MG/DL (0.1-1.0); BLOOD UREA NITROGEN 12 MG/DL (7-18); BUN/CREATININE RATIO 14; CALCIUM 8.7 MG/DL (8.5-10.1); CARBON DIOXIDE 22 MMOL/L (21-32); CHLORIDE 111 MMOL/L (98-107); CREATININE SERUM 0.84 MG/DL (0.60-1.30); GFR ESTIMATED > 60; GLUCOSE 92 MG/DL (70-105); POTASSIUM 4.1 MMOL/L (3.6-5.0); SODIUM 141 MMOL/L (135-145); TOTAL PROTEIN 5.8 G/DL (6.4-8.2)
[2016-08-26] MEDS ORDERED: PANTOPRAZOLE 40 MG (PROTONIX) TAB PO SCH (07:00)
[2016-08-26 08:00] VITALS: BP 127/71
[2016-08-26] MEDS: cefTRIAXone INJECTION 1,000 MG in NS (IVPB) 50 ML IV SCH (08:29)
[2016-08-26] MEDS ORDERED: CEFA500C8 PO (08:58)
--- NOTE | 2016-08-26 08:59 | Discharge Inst-Simple/Standard ---
Discharge Inst-Standard Discharge Medications New, Converted or Re-Newed RX: Transmitted to Pharmacy Patient Instructions/Follow Up Plan of Care/Instructions/FU: Fwup in 2 weeks Activity as Tolerated: Yes Discharge Diet: Cardiac Diet RUT HOLLAND DO Aug 26, 2016 8:58 am
[2016-08-26] MEDS ORDERED: FLUoxetine HCL 10 MG (PROzac) CAPSULE/TABLET PO SCH (09:00)
[2016-08-26 11:53] VITALS: BP 126/77
[2016-08-26 12:40] VITALS: BP 126/77
== END 2016-08-26 12:40 | disposition home or self-care (01) | DRG 683 ==
LOC: EDUNIT# 16:45 → ER 16:47 → 4TH 18:26
PROVIDERS: ADMIT Family Medicine; ATTEND Family Medicine
DX: N17.9 Acute kidney failure, unspecified (principal); N39.0 Urinary tract infection, site not specified; S32.10XA Unspecified fracture of sacrum, initial encounter for closed fracture; J06.9 Acute upper respiratory infection, unspecified; H10.023 Other mucopurulent conjunctivitis, bilateral; I10 Essential (primary) hypertension; W01.0XXA Fall on same level from slipping, tripping and stumbling without subsequent striking against object, initial encounter
CPT/HCPCS: 36415; 70450; 71010; 72125; 72192; 80048; 80053; 81000; 83735; 84484; 85025; 87077; 87088; 87186; 93005; 93041; 94664; 94760

== ENCOUNTER → 2016-11-18 | Outpatient (CLI) | payer BC, MEDICARE ==
[~2016-11-18] MED LIST changes: +CEFA500C8 PO; +FLUO10CA19 PO; +IBUP-30 PO; +PANT40TA3 PO
--- NOTE | 2016-11-18 19:25 | Diagnostic Imaging Report ---
INDICATION: Bladder infection, renal failure. Bilateral renal sonography is performed in the routine fashion. The right kidney measures 7.9 x 4.6 x 4.9 cm. The left kidney measures 9.7 x 5.4 x 5.3 cm. Both kidneys show no hydronephrosis or mass. There is a small cyst in the left kidney inferiorly measuring 1.5 x 1.3 cm. There are bilateral ureteral jets. There is an incidental bladder diverticulum noted measuring about 2.5 cm. IMPRESSION: Relatively small right kidney with normal-size left kidney. There is no hydronephrosis. There is a small cyst in the left kidney. A bladder diverticulum is noted. Dictated by: Dictated on workstation # [id number]
== END ==
LOC: RAD 15:54
PROVIDERS: ATTEND Family Medicine
DX: N28.1 Cyst of kidney, acquired (principal); N32.3 Diverticulum of bladder
CPT/HCPCS: 76770

== ENCOUNTER → 2016-12-16 | Outpatient (CLI) | payer BC ==
--- NOTE | 2016-12-16 17:17 | Diagnostic Imaging Report ---
PROCEDURE: CT abdomen and pelvis without contrast. TECHNIQUE: Multiple contiguous axial images were obtained through the abdomen and pelvis without the use of intravenous contrast. INDICATION: Recurrent UTI. FINDINGS: The lung bases demonstrate no significant abnormality. The liver, the gallbladder, the spleen, the pancreas, and the adrenal glands appear unremarkable. The abdominal aorta is normal in caliber. No para-aortic significantly enlarged lymph nodes seen. There is a 1.2 cm low-attenuation exophytic lesion from the upper pole of the left kidney and another lesion measuring 1.4 cm from the lower pole of the left kidney, probably related to cysts. There is no hydronephrosis. There is a 2.5 x 2.6 cm lesion seen with fluid density abutting the right lateral aspect of the urinary bladder suggestive of a bladder diverticulum. A small similar lesion in the left lateral aspect measuring 1.1 cm is seen. This appears to be separate from the distal ureter on both sides. There are no urinary tract stones seen. No hydronephrosis. No significant free fluid or fluid collection in the abdomen or pelvis is seen. There is suggestion of prior hysterectomy. There is also suggestion of pelvic floor weakness with pelvic structures projecting inferior to the expected pelvic floor levels. No bowel obstruction. The osseous structures demonstrate mild right scoliotic curvature. There is a 1 cm sclerotic focus seen in the right ischium, could relate to a bony island and is stable from 2012. IMPRESSION: 1. Evidence of urinary bladder diverticula, larger on the right side arising from the lateral wall, separate from the distal ureter. 2. Evidence of pelvic floor weakness with descended appearance of the pelvic soft tissue structures into the perineum. Dictated by: Dictated on workstation # [id number]
== END ==
LOC: RAD 13:55
PROVIDERS: ATTEND Urology
DX: Z87.440 Personal history of urinary (tract) infections (principal)
CPT/HCPCS: 74176

== ENCOUNTER 2020-02-15 02:17 | Emergency (ER) | payer BC ==
[~2020-02-15] VITALS: Ht 172.7 cm; Wt 79.0 kg
[~2020-02-15 02:17] MED LIST changes: -FLUO10CA19 PO; +FLUO10CA31 PO; -PANT40TA3 PO; +PANT40TA52 PO
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
[2020-02-15] MEDS ORDERED: hydrALAZINE (APESOLINE) 20 MG/ML VIAL IV ONE (03:00)
[2020-02-15 03:28] LABS: INR 1.1 (0.8-1.4); PROTHROMBIN TIME PATIENT 14.3 SEC (12.2-14.7)
[2020-02-15 03:32] LABS: ALBUMIN 3.9 GM/DL (3.2-4.5); CHLORIDE 107 MMOL/L (98-107); POTASSIUM 4.5 MMOL/L (3.6-5.0); SODIUM 142 MMOL/L (135-145)
[2020-02-15 03:33] LABS: CALCIUM 8.7 MG/DL (8.5-10.1)
[2020-02-15 03:34] LABS: GLUCOSE 115 MG/DL (70-105)
[2020-02-15 03:35] LABS: CARBON DIOXIDE 23 MMOL/L (21-32)
[2020-02-15 03:36] LABS: BILIRUBIN,TOTAL 0.9 MG/DL (0.1-1.0)
[2020-02-15 03:38] LABS: ALKALINE PHOSPHATASE 54 U/L (40-136); GFR ESTIMATED > 60
[2020-02-15 03:39] LABS: BUN/CREATININE RATIO 15
[2020-02-15 03:41] LABS: ALANINE AMINOTRANSFERASE 23 U/L (0-55); CREATINE KINASE 34 U/L (29-168)
[2020-02-15 03:49] LABS: CREATINE KINASE MB 1.4 NG/ML (<6.6)
[2020-02-15 03:56] LABS: BASOPHILS % (AUTO) 0 % (0-10); EOSINOPHILS # (AUTO) 0.2 10^3/uL (0.0-0.3); EOSINOPHILS % (AUTO) 4 % (0-10); HEMATOCRIT 42 % (35-52); LYMPHOCYTES # (AUTO) 1.5 10^3/uL (1.0-4.0); LYMPHOCYTES % (AUTO) 31 % (12-44); MEAN CORPUSCULAR HEMOGLOBIN 30 pg (25-34); MEAN CORPUSCULAR HGB CONC 33 g/dL (32-36); MEAN CORPUSCULAR VOLUME 91 fL (80-99); MEAN PLATELET VOLUME 9.5 fL (9.0-12.2); MONOCYTES # (AUTO) 0.5 10^3/uL (0.0-1.0); MONOCYTES % (AUTO) 10 % (0-12); NEUTROPHILS # (AUTO) 2.7 10^3/uL (1.8-7.8); NEUTROPHILS % (AUTO) 55 % (42-75); PLATELET COUNT 171 10^3/uL (130-400); WHITE BLOOD COUNT 4.9 10^3/uL (4.3-11.0)
[2020-02-15 04:01] LABS: TSH (THYROID ANALYZER) 1.67 UIU/ML (0.35-4.94)
[2020-02-15] MEDS ORDERED: HYDR-3923 PO (04:02)
[2020-02-15 04:14] VITALS: BP 134/72
--- NOTE | 2020-02-15 05:26 | Diagnostic Imaging Report ---
Indication: Cough and fever Portable chest 3:01 AM Heart size and pulmonary vascularity are normal. Lungs are clear. There are no effusions or pneumothoraces. IMPRESSION: Negative chest Dictated by: Dictated on workstation # [id number]
== END 2020-02-15 04:16 | disposition home or self-care (01) ==
LOC: EDUNIT# 02:17 → ER 02:20
DX: I10 Essential (primary) hypertension (principal); F41.9 Anxiety disorder, unspecified; Z82.49 Family history of ischemic heart disease and other diseases of the circulatory system; Z80.9 Family history of malignant neoplasm, unspecified; Z85.828 Personal history of other malignant neoplasm of skin; Z85.820 Personal history of malignant melanoma of skin; Z87.891 Personal history of nicotine dependence
CPT/HCPCS: 36415; 71045; 80053; 82550; 82553; 83735; 83880; 84443; 84484; 85025; 85610; 85730; 93005; 93041; 96374

== ENCOUNTER 2021-04-24 06:04 | Outpatient (CLI) | payer BC ==
[~2021-04-24] VITALS: Ht 172 cm; Wt 78.4 kg
[~2021-04-24 06:04] MED LIST changes: +CEFA-28 PO; -CEFA500C8 PO; -FLUO10CA31 PO; +FLUO10CA33 PO; +HYDR-3923 PO
[2021-04-28] MEDS ORDERED: AMLO-251 PO (16:26)
[2021-04-28] MEDS ORDERED: METO50TA7 PO (16:26)
[2021-04-28] MEDS ORDERED: HYDR25TA4 PO (16:26)
[2021-04-28] MEDS ORDERED: PRAV10TA PO (16:26)
== END 2021-04-28 16:27 | disposition home or self-care (01) ==
LOC: PREOP 06:04
PROVIDERS: ATTEND Specialist
DX: Z01.818 Encounter for other preprocedural examination (principal)

== ENCOUNTER 2021-05-01 06:50 | Day surgery (SDC) | payer BC ==
[~2021-05-01] VITALS: Ht 172 cm; Wt 78.4 kg
[~2021-05-01 06:50] MED LIST changes: +AMLO-251 PO; +HYDR25TA4 PO; +METO50TA7 PO; +PRAV10TA PO
[2021-05-01] MEDS ORDERED: LIDOCAINE PF 1% 2 ML VIAL IR PRN (07:15)
[2021-05-01] MEDS ORDERED: TIMOLOL MALEATE 0.5% 5 ML (TIMOPTIC) BTL OU PRN (07:15)
[2021-05-01] MEDS ORDERED: POVIDONE (BETADINE) OPHTH SOLN 5% 30 ML OP ONE (07:15)
[2021-05-01] MEDS ORDERED: MOXIFLOXACIN OPHTH SOLN 5 MG/ML 0.3 ML SYRINGE OP ONE (07:15)
[2021-05-01] MEDS: TETRACAINE 0.5% OPHTH SOLN 4 ML BTL (SINGLE DOSE ONLY) OU PRN ×4 (07:16→07:37)
[2021-05-01 07:18] VITALS: BP 135/68
[2021-05-01] MEDS: PHENYLEPHRINE 10% OPHTH (NEO-SYN) 5 ML BTL OU SCH ×3 (07:25→07:38)
[2021-05-01] MEDS: TROPICAMIDE 1% OPH SOLN (MYDRIACYL) 15 ML BTL OP SCH ×3 (07:25→07:37)
[2021-05-01] MEDS ORDERED: MIDAZOLAM 2 MG/2 ML (VERSED) VIAL ONE (07:35)
--- NOTE | 2021-05-01 07:50 | Ophthalmologist Pre-Op Note ---
Pre-Operative Progress Note H&P Reviewed The H&P was reviewed, patient examined and no changes noted. Date H&P Reviewed: May 01, 2021 Time H&P Reviewed: 07:49 Pre-Op Dx Cataract, Left Eye RODRIGO CAMPOS MD May 01, 2021 07:50
--- NOTE | 2021-05-01 08:13 | Ophthalmology Operative Report ---
Cataract removal/placement IOL PREOPERATIVE DIAGNOSIS: Cataract Left Eye POSTOPERATIVE DIAGNOSIS: Cataract Left Eye PROCEDURE: Cataract removal and placement of posterior chamber implant, left eye SURGEON: Estrada Campos ANESTHESIA: Topical with sedation COMPLICATIONS: None ESTIMATED BLOOD LOSS: Minimal DESCRIPTION OF PROCEDURE: After proper informed consent was obtained, the patient, a 70 female, was taken to the Operating Room and the left eye was anesthetized with tetracaine. The left eye was then prepped and draped in the usual manner. A wire lid speculum was placed. A paracentesis was made at the left hand position. Preservative free lidocaine was injected into the anterior chamber followed by viscoelastic. A clear corneal incision was made in the temporal position. A capsulorrhexis was preformed and the central nuclear and cortical material were removed. The posterior capsule was polished and an Zane 20.5 AU00T0 was placed into the capsular bag. The residual viscoelastic was aspirated and balanced saline solution was injected into the anterior chamber. Moxifloxacin was injected into the anterior chamber. The wound was checked and found to be water tight. The patient tolerated the procedure well without complications. ESTRADA CAMPOS MD May 01, 2021 08:13
[2021-05-01 08:24] VITALS: BP 140/89
[2021-05-01] MEDS ORDERED: acetaZOLAMIDE ER 500 MG CAP (DIAMOX SEQUELS) PO ONE (09:30)
--- NOTE | 2021-05-01 12:22 | Anesthesia-General Post-Op ---
MAC Patient Condition Mental Status/LOC: Same as Preop Cardiovascular: Satisfactory Nausea/Vomiting: Absent Respiratory: Satisfactory Pain: Controlled Complications: Absent Post Op Complications Complications None Follow Up Care/Instructions Patient Instructions None needed. Anesthesiology Discharge Order Discharge Order Patient is doing well, no complaints, stable vital signs, no apparent adverse anesthesia problems. No complications reported per nursing. RAIZA LUNA CRNA May 01, 2021 12:22
== END 2021-05-01 08:25 ==
LOC: SDC 06:50
PROVIDERS: ATTEND Specialist
DX: H25.12 Age-related nuclear cataract, left eye (principal); I10 Essential (primary) hypertension; E78.5 Hyperlipidemia, unspecified; M19.90 Unspecified osteoarthritis, unspecified site; K59.00 Constipation, unspecified; E78.00 Pure hypercholesterolemia, unspecified; F32.A Depression, unspecified; Z79.899 Other long term (current) drug therapy; Z80.3 Family history of malignant neoplasm of breast; Z80.1 Family history of malignant neoplasm of trachea, bronchus and lung
CPT/HCPCS: 66984; V2632

== ENCOUNTER 2021-05-15 07:35 | Day surgery (SDC) | payer BC ==
[~2021-05-15] VITALS: Ht 172 cm; Wt 78.4 kg
[2021-05-15] MEDS ORDERED: MOXIFLOXACIN OPHTH SOLN 5 MG/ML 0.3 ML SYRINGE OP ONE (07:45)
[2021-05-15] MEDS ORDERED: LIDOCAINE PF 1% 2 ML VIAL IR PRN (07:45)
[2021-05-15] MEDS ORDERED: TIMOLOL MALEATE 0.5% 5 ML (TIMOPTIC) BTL OU PRN (07:45)
[2021-05-15] MEDS ORDERED: POVIDONE (BETADINE) OPHTH SOLN 5% 30 ML OP ONE (07:45)
[2021-05-15] MEDS: TETRACAINE 0.5% OPHTH SOLN 4 ML BTL (SINGLE DOSE ONLY) OU PRN ×4 (07:46→08:04)
[2021-05-15] MEDS: TROPICAMIDE 1% OPH SOLN (MYDRIACYL) 15 ML BTL OP SCH ×3 (07:53→08:04)
[2021-05-15] MEDS: PHENYLEPHRINE 10% OPHTH (NEO-SYN) 5 ML BTL OU SCH ×3 (07:54→08:04)
[2021-05-15 07:55] VITALS: BP 137/70
[2021-05-15] MEDS ORDERED: MIDAZOLAM 2 MG/2 ML (VERSED) VIAL ONE (07:57)
--- NOTE | 2021-05-15 08:27 | Ophthalmologist Pre-Op Note ---
Pre-Operative Progress Note H&P Reviewed The H&P was reviewed, patient examined and no changes noted. Date H&P Reviewed: May 15, 2021 Time H&P Reviewed: 08:26 Pre-Op Dx Cataract, Right Eye RODRIGO CAMPOS MD May 15, 2021 08:27
--- NOTE | 2021-05-15 08:50 | Ophthalmology Operative Report ---
Cataract removal/placement IOL PREOPERATIVE DIAGNOSIS: Cataract Right Eye POSTOPERATIVE DIAGNOSIS: Cataract Right Eye PROCEDURE: Cataract removal and placement of posterior chamber implant, right eye SURGEON: Estrada Campos ANESTHESIA: Topical with sedation COMPLICATIONS: None ESTIMATED BLOOD LOSS: Minimal DESCRIPTION OF PROCEDURE: After proper informed consent was obtained, the patient, a 70 female, was taken to the Operating Room and the right eye was anesthetized with tetracaine. The right eye was then prepped and draped in the usual manner. A wire lid speculum was placed. A paracentesis was made at the left hand position. Preservative free lidocaine was injected into the anterior chamber followed by viscoelastic. A clear corneal incision was made in the temporal position. A capsulorrhexis was preformed and the central nuclear and cortical material were removed. The posterior capsule was polished and Zane 21.5 AU00T0 IOL was placed into the capsular bag. The residual viscoelastic was aspirated and balanced saline solution was injected into the anterior chamber. Moxifloxacin was injected into the anterior chamber. The wound was checked and found to be water tight. The patient tolerated the procedure well without complications. ESTRADA CAMPOS MD May 15, 2021 08:50
[2021-05-15 08:59] VITALS: BP 92/71
[2021-05-15] MEDS ORDERED: acetaZOLAMIDE ER 500 MG CAP (DIAMOX SEQUELS) PO ONE (09:15)
--- NOTE | 2021-05-15 10:44 | Anesthesia-General Post-Op ---
MAC Patient Condition Mental Status/LOC: Same as Preop Cardiovascular: Satisfactory Nausea/Vomiting: Absent Respiratory: Satisfactory Pain: Controlled Complications: Absent Post Op Complications Complications None Follow Up Care/Instructions Patient Instructions None needed. Anesthesiology Discharge Order Discharge Order Patient is doing well, no complaints, stable vital signs, no apparent adverse anesthesia problems. No complications reported per nursing. SRI MENDOZA CRNA May 15, 2021 10:44
== END 2021-05-15 09:00 | disposition home or self-care (01) ==
LOC: SDC 07:35
PROVIDERS: ATTEND Specialist
DX: H25.9 Unspecified age-related cataract (principal); I10 Essential (primary) hypertension; Z79.899 Other long term (current) drug therapy
CPT/HCPCS: 66984; V2632